=== PATIENT | female | born 1975 | race Caucasian/White ===

== ENCOUNTER → 2019-06-02 | Outpatient (CLI) | payer BC | LOC: COL.RAD 08:15 | DX: K82.0 Obstruction of gallbladder (principal) ==

== ENCOUNTER 2019-06-26 13:49 | Inpatient (IN) | payer BC ==
[2019-06-26] VITALS (8 sets, daily range): BP systolic 109–143; BP diastolic 49–70; PULSE 82–107; TEMP 98.1–98.9
[~2019-06-26] VITALS: Ht 167.6 cm; Wt 109.1 kg
[2019-06-26] MEDS ORDERED: LEVOXYL0.05 MG PO (14:09)
[2019-06-26] MEDS ORDERED: NORCO 325 MG-51 TAB PO (14:10)
[2019-06-26 14:38] LABS: BASO # 0.1 (0.0-0.2); BASO % 0.4 % (0.0-2.0); EOS # 0.2 (0.0-0.7); EOS % 1.2 % (0-4.0); GRAN # 14.5 (1.4-6.5); GRAN % 77.7 % (42.2-75.2); HEMATOCRIT 41.1 % (37.0-47.0); HEMOGLOBIN 14.2 g/dl (12.5-16.0); LYMPH # 2.8 (1.2-3.4); LYMPH % 15.1 % (20.0-51.0); MEAN CELL VOLUME 93 fl (80.0-100.0); MEAN CORPUSCULAR HEMOGLOBIN 32 pg (27.0-31.0); MEAN CORPUSCULAR HGB CONC 35 g/dl (33.0-37.0); MEAN PLATELET VOLUME 9.7 fl (7.4-10.4); MONO # 0.9 (0.1-0.6); MONO % 4.9 % (1.7-9.3); PLATELET COUNT 317 K/mm3 (130-400); RED BLOOD COUNT 4.44 M/mm3 (4.10-5.30); REDCELL DISTRIBUTION WIDTH-CV 11.9 % (11.5-14.5)
[2019-06-26 14:54] LABS: ALBUMIN 4.4 gm/dL (3.5-5.0); BILIRUBIN,TOTAL 0.9 mg/dL (0.0-1.0); C-REACTIVE PROTEIN 3.7 mg/dL (0.0-0.9); CALCIUM 9.2 mg/dL (8.4-10.2); CREATININE, serum 0.74 (0.52-1.25); POTASSIUM 4.1 mmol/L (3.4-5.0); TOTAL PROTEIN 7.7 gm/dL (6.4-8.2)
[2019-06-26 15:52] LABS: COLLECTION METHOD CLEAN CATCH
[2019-06-26 16:02] LABS: MUCOUS Present /lpf; PH 5 (5-8); SQUAMOUS EPITHELIAL 0-2 /hpf; URINE APPEARANCE Clear; URINE BACTERIA None Seen /hpf; URINE BILIRUBIN Negative (NEGATIVE); URINE BLOOD Negative (NEGATIVE); URINE COLOR Yellow; URINE GLUCOSE Negative (NEGATIVE); URINE KETONE 1+ (NEGATIVE); URINE LEUKOCYTE ESTERASE Negative (NEGATIVE); URINE NITRATE Negative (NEGATIVE); URINE PROTEIN(semi-quant) Negative (NEGATIVE); URINE RBC 0-2 /hpf; URINE UROBILINOGEN Negative (NEGATIVE)
--- NOTE | 2019-06-26 20:15 | NUR ---
Pt. to the floor from PACU. Pt is A&OX3, assessment complete. IV to rt. wrist patent, fluids running per orders. INT to rt. ac patent. Abd. lap sites, x4 CDI with bandaids. Pt. denies pain at this time. Call light within reach.
[2019-06-27 05:37] VITALS: BP 124/49; PULSE 85; TEMP 98.1
[2019-06-27 06:23] LABS: BASO % 0.2 % (0.0-2.0); GRAN # 17.9 (1.4-6.5); GRAN % 89.7 % (42.2-75.2); HEMATOCRIT 39.1 % (37.0-47.0); HEMOGLOBIN 13.3 g/dl (12.5-16.0); LYMPH # 1.1 (1.2-3.4); LYMPH % 5.6 % (20.0-51.0); MEAN CELL VOLUME 93 fl (80.0-100.0); MEAN CORPUSCULAR HEMOGLOBIN 32 pg (27.0-31.0); MEAN CORPUSCULAR HGB CONC 34 g/dl (33.0-37.0); MEAN PLATELET VOLUME 9.4 fl (7.4-10.4); MONO # 0.8 (0.1-0.6); MONO % 3.9 % (1.7-9.3); PLATELET COUNT 318 K/mm3 (130-400); RED BLOOD COUNT 4.19 M/mm3 (4.10-5.30); REDCELL DISTRIBUTION WIDTH-CV 12.2 % (11.5-14.5)
[2019-06-27 06:37] LABS: ALBUMIN 4.2 gm/dL (3.5-5.0); CALCIUM 8.9 mg/dL (8.4-10.2); CREATININE, serum 0.8 (0.52-1.25); POTASSIUM 4.5 mmol/L (3.4-5.0); TOTAL PROTEIN 7.5 gm/dL (6.4-8.2)
[2019-06-27 07:48] VITALS: BP 141/72; PULSE 86; TEMP 98.6
--- NOTE | 2019-06-27 11:00 | NUR ---
Patient continues to have sharp, stabbing pains. She states the pain feels like a cramp and makes it so she can not breath. None of the medications seem to help. She is getting Zanaflex seemps to help but not enough. Her mother is at bedside. We placed started a k-pad for her to hopefully help. No other changes at this time. Call light within reach.
--- NOTE | 2019-06-27 11:06 | NUR ---
First visit from the insurance risk manager. No needs right now.
[2019-06-27 11:24] VITALS: BP 119/56; PULSE 75; TEMP 99.1
[2019-06-27 14:17] LABS: BASO % 0.1 % (0.0-2.0); GRAN # 17.6 (1.4-6.5); GRAN % 83.3 % (42.2-75.2); HEMATOCRIT 39.3 % (37.0-47.0); HEMOGLOBIN 13.3 g/dl (12.5-16.0); LYMPH # 1.9 (1.2-3.4); LYMPH % 9.1 % (20.0-51.0); MEAN CELL VOLUME 94 fl (80.0-100.0); MEAN CORPUSCULAR HEMOGLOBIN 32 pg (27.0-31.0); MEAN CORPUSCULAR HGB CONC 34 g/dl (33.0-37.0); MEAN PLATELET VOLUME 9.5 fl (7.4-10.4); MONO # 1.4 (0.1-0.6); MONO % 6.7 % (1.7-9.3); PLATELET COUNT 327 K/mm3 (130-400); REDCELL DISTRIBUTION WIDTH-CV 12.3 % (11.5-14.5)
--- NOTE | 2019-06-27 14:23 | NUR ---
Circuit Designer met with patient and patient's aunt, Radha. Patient lives in [place] with friends. Patient sees Dr. Cindi Varela for primary care and obtains needed medications from [facility]. Patient reports independence with ADLS and has no DME at this time. Patient does not have Advance Directives but was interested in setting up DPOA-HC. Patient completed DPOA-HC form and SW provided witness signature along with RN, Shweta. SW placed copy of DPOA-HC in patient chart. Patient states she plans to stay with her aunt Salima to recover upon discharge. SW to continue to follow as needed.
--- NOTE | 2019-06-27 18:30 | NUR ---
Patients pain has been better controlled this afternoon. She is resting at this time. Her mother is at bedside. Dr Knight started Zosyn for elevated WBC. No other changes at this time. Call light within reach.
[2019-06-27 18:40] VITALS: BP 128/59; PULSE 79; TEMP 99.2
[2019-06-27 19:16] VITALS: BP 135/56; PULSE 79; TEMP 98
[2019-06-27 23:06] VITALS: BP 115/53; PULSE 78; TEMP 98
--- NOTE | 2019-06-28 03:30 | NUR ---
Patient noted to have frequent pain episodes, where she develops fast breathing, moaning, and states she has contraction-like pain to her mid-abdomen. Patient states it does not feel like gas pain, but is encouraged to ambulate. Pain regimen "takes the edge off" states patient. Lap sites CDI. Patient states she has a decrease in appetite, d/t the pain. States the Xanaflex has helped today. Antibiotics continued as ordered. Will continue to monitor patient.
[2019-06-28 04:00] VITALS: BP 125/52; PULSE 78; TEMP 98.4
[2019-06-28 07:30] VITALS: BP 124/57; PULSE 88; TEMP 98.4
[2019-06-28 07:35] LABS: BASO % 0.2 % (0.0-2.0); EOS # 0.1 (0.0-0.7); EOS % 0.6 % (0-4.0); GRAN # 10.6 (1.4-6.5); GRAN % 76.4 % (42.2-75.2); HEMOGLOBIN 11.9 g/dl (12.5-16.0); LYMPH % 14.1 % (20.0-51.0); MEAN CELL VOLUME 96 fl (80.0-100.0); MEAN CORPUSCULAR HEMOGLOBIN 31 pg (27.0-31.0); MEAN CORPUSCULAR HGB CONC 33 g/dl (33.0-37.0); MEAN PLATELET VOLUME 9.8 fl (7.4-10.4); MONO # 1.1 (0.1-0.6); MONO % 8.1 % (1.7-9.3); PLATELET COUNT 315 K/mm3 (130-400); RED BLOOD COUNT 3.79 M/mm3 (4.10-5.30); REDCELL DISTRIBUTION WIDTH-CV 12.5 % (11.5-14.5)
[2019-06-28 07:40] LABS: HEMATOCRIT 36.3 % (37.0-47.0)
[2019-06-28 07:53] LABS: BILIRUBIN,TOTAL 1.5 mg/dL (0.0-1.0); CALCIUM 8.8 mg/dL (8.4-10.2); CREATININE, serum 0.85 (0.52-1.25); POTASSIUM 3.8 mmol/L (3.4-5.0); TOTAL PROTEIN 7.4 gm/dL (6.4-8.2)
[2019-06-28 10:45] VITALS: BP 113/55; PULSE 90; TEMP 98.6
--- NOTE | 2019-06-28 11:30 | NUR ---
Patient seems to be feeling a lot better. Her pain is a lot better today as well. She has been up a few times walking in the hallways. Denies nausea. Talked about her maybe discharging this afternoon. No other changes at this time. Call light within reach.
--- NOTE | 2019-06-28 12:10 | NUR ---
Initial visit; Patient thanked S[employer] Hana Developer for looking in on her and offering God's blessings.
[2019-06-28 16:40] VITALS: BP 104/55; PULSE 85; TEMP 99.4
--- NOTE | 2019-06-28 18:00 | NUR ---
Patient has been doing well today. No changes from this morning. She has been eating better this afternoon. Her aunt brought her food. Encouraged her to try walking more this evening. No other changes at this time. Call light within reach.
[2019-06-28 20:00] VITALS: BP 102/33; PULSE 72; TEMP 98.8
[2019-06-28 23:50] VITALS: BP 104/50; PULSE 66; TEMP 98.4
--- NOTE | 2019-06-29 03:16 | NUR ---
Patient has rested well throughout the night. States she is feeling a lot better than today. Patient denies pain and states the xanaflex is helping. Will continue to monitor patient.
[2019-06-29 04:00] VITALS: BP 108/37; PULSE 67; TEMP 98
[2019-06-29 06:42] LABS: BASO # 0.1 (0.0-0.2); BASO % 0.7 % (0.0-2.0); EOS # 0.4 (0.0-0.7); EOS % 4.2 % (0-4.0); GRAN # 4.8 (1.4-6.5); GRAN % 54.4 % (42.2-75.2); HEMOGLOBIN 10.7 g/dl (12.5-16.0); LYMPH # 2.9 (1.2-3.4); LYMPH % 32.4 % (20.0-51.0); MEAN CELL VOLUME 94 fl (80.0-100.0); MEAN CORPUSCULAR HEMOGLOBIN 31 pg (27.0-31.0); MEAN CORPUSCULAR HGB CONC 33 g/dl (33.0-37.0); MEAN PLATELET VOLUME 9.7 fl (7.4-10.4); MONO # 0.7 (0.1-0.6); MONO % 7.7 % (1.7-9.3); PLATELET COUNT 272 K/mm3 (130-400); RED BLOOD COUNT 3.41 M/mm3 (4.10-5.30); REDCELL DISTRIBUTION WIDTH-CV 12.4 % (11.5-14.5)
[2019-06-29 06:58] LABS: HEMATOCRIT 32.2 % (37.0-47.0)
[2019-06-29 07:22] VITALS: BP 114/45; PULSE 72; TEMP 98.3
--- NOTE | 2019-06-29 08:00 | NUR ---
PATIENT IS A&O. VSS. REPORTS PAIN IS SO MUCH BETTER. PREVIOUS ABDOMINAL LAP SITES HEALING. POSITIVE BOWL SOUNDS. NO C/O N/V. RIGHT AC IV TO INT. HEAD TO TOE ASSESSMENT WNL. PATIENT HOPING TO DISCHARGE HOME TODAY.
[2019-06-29] MEDS ORDERED: AMOXICILLIN/CLA1 TA1 PO (08:15)
--- NOTE | 2019-06-29 10:45 | NUR ---
PATIENT DISCHARGING HOME VIA AMBULATORY TO PERSONAL VEHICLE WITH FAMILY. GAVE DISCHARGE INSTRUCTIONS, E-SCRIPT SENT TO RX, AND FOLLOW UP APT. ANSWERED ALL QUESTIONS/CONCERNS. DC'D RIGHT AC IV, COVERED SITE WITH GAUZE & TAPE. PATIENT DISCHARGED.
== END 2019-06-29 10:45 | disposition home or self-care (01) | DRG 908 ==
LOC: COL.ER 13:49 → SURG 19:00
PROVIDERS: Emergency Medicine; Family Medicine; ADMIT Surgery
PROC: 3E1M38Z Irrigation of Peritoneal Cavity using Irrigating Substance, Percutaneous Approach (ICD-10-PCS; 2019-06-26)
PROC: 0DJ64ZZ Inspection of Stomach, Percutaneous Endoscopic Approach (ICD-10-PCS; principal; 2019-06-26 19:00)
DX: K91.870 Postprocedural hematoma of a digestive system organ or structure following a digestive system procedure (principal); T81.40XA Infection following a procedure, unspecified, initial encounter; N83.12 Corpus luteum cyst of left ovary; Y83.8 Other surgical procedures as the cause of abnormal reaction of the patient, or of later complication, without mention of misadventure at the time of the procedure; D25.9 Leiomyoma of uterus, unspecified; E66.9 Obesity, unspecified; F17.210 Nicotine dependence, cigarettes, uncomplicated; E03.9 Hypothyroidism, unspecified; Z90.49 Acquired absence of other specified parts of digestive tract; Z68.38 Body mass index [BMI] 38.0-38.9, adult
CPT/HCPCS: G0378; J0330; J1100; J1170; J1885; J2250; J2270; J2405; J2543; J2704; J3010; J7030; Q9967